=== PATIENT | female | born 1985 | race Caucasian/White ===

== ENCOUNTER 2016-10-07 08:23 | Emergency (ER) | payer OTHER ==
[~2016-10-07] VITALS: Ht 157.5 cm; Wt 57.1 kg
[~2016-10-07 08:23] MED LIST: ESG PO; IBUPROFEN400 MG; LAC PO; LEVAQUIN750 MG PO; NORCO1 TA2
[2016-10-07 11:55] VITALS: BP 120/71
== END 2016-10-07 11:55 | disposition home or self-care (01) ==
LOC: ED 08:23
DX: J20.9 Acute bronchitis, unspecified (principal)
CPT/HCPCS: J7613; J7644

== ENCOUNTER 2016-10-28 08:23 | Emergency (ER) | payer OTHER ==
[2016-10-28 10:08] VITALS: BP 108/61
== END 2016-10-28 10:08 | disposition home or self-care (01) ==
LOC: ED 08:23
DX: J40 Bronchitis, not specified as acute or chronic (principal); M54.9 Dorsalgia, unspecified; Z87.442 Personal history of urinary calculi

== ENCOUNTER 2017-01-12 11:47 | Emergency (ER) | payer OTHER ==
[~2017-01-12] VITALS: Ht 154.9 cm; Wt 56.3 kg
[2017-01-12 12:37] LABS: BASOPHIL % 0.4 % (0-2); PLATELET COUNT 264 x10^3mcL (130-400); RED CELL DISTRIBUTION WIDTH 14.1 % (11.5-14.5)
[2017-01-12 13:02] LABS: CALCIUM 9.1 mg/dL (8.5-10.1); CHLORIDE SERUM 104 mmol/L (98-107); CREATININE SERUM 0.8 mg/dL (0.6-1.0); GFR1 > 60 mL/min; GLUCOSE SERUM 91 mg/dL (74-106); SODIUM SERUM 138 mmol/L (136-145)
[2017-01-12 13:03] LABS: AMPHETAMINE QUAL UR NONE DETECTED (NEG <=1000)
[2017-01-12 13:05] LABS: ALBUMIN 3.9 g/dL (3.4-5.0); ALKALINE PHOSPHATASE 68 U/L (46-116); ALT/SGPT 21 U/L (14-59); AMYLASE 54 U/L (25-115); AST/SGOT 12 U/L (15-37); BILIRUBIN TOTAL 0.7 mg/dL (0.20-1.00); LIPASE 178 IU/L (73-393); TOTAL PROTEIN, SERUM 7.8 g/dL (6.4-8.2)
[2017-01-12 13:42] VITALS: BP 95/64
== END 2017-01-12 13:42 | disposition home or self-care (01) ==
LOC: ED 11:47
PROVIDERS: Emergency Medicine
DX: E86.0 Dehydration (principal); R19.7 Diarrhea, unspecified
CPT/HCPCS: 83880; 87046; 87046-59; J2405; J7030

== ENCOUNTER 2017-02-11 00:56 | Emergency (ER) | payer OTHER ==
[2017-02-11 01:08] VITALS: BP 121/87
== END 2017-02-11 02:49 | disposition home or self-care (01) ==
LOC: ED 00:56
DX: N39.0 Urinary tract infection, site not specified (principal); Z87.442 Personal history of urinary calculi

== ENCOUNTER 2018-12-13 20:46 | Emergency (ER) | payer OTHER ==
[~2018-12-13] VITALS: Ht 157.5 cm; Wt 65.8 kg
[2018-12-13 21:06] VITALS: Ht 157.5 cm; Wt 65.8 kg
[2018-12-13 23:30] LABS: BASOPHIL % 0.4 % (0-2); PLATELET COUNT 295 x10^3mcL (130-400); RED CELL DISTRIBUTION WIDTH 13.9 % (11.5-14.5)
[2018-12-13 23:40] LABS: CALCIUM 8.8 mg/dL (8.5-10.1); CARBON DIOXIDE 26.4 mmol/L (21-32); CHLORIDE SERUM 103 mmol/L (98-107); CREATININE SERUM 0.8 mg/dL (0.6-1.0); GFR1 > 60 mL/min; GLUCOSE SERUM 97 mg/dL (74-106); SODIUM SERUM 138 mmol/L (136-145)
[2018-12-13 23:44] LABS: ALBUMIN 3.5 g/dL (3.4-5.0); ALKALINE PHOSPHATASE 81 U/L (46-116); ALT/SGPT 30 U/L (14-59); AST/SGOT 10 U/L (15-37); BILIRUBIN TOTAL 0.3 mg/dL (0.20-1.00); TOTAL PROTEIN, SERUM 7.4 g/dL (6.4-8.2)
[2018-12-14 01:06] VITALS: BP 101/71
== END 2018-12-14 01:06 | disposition home or self-care (01) ==
LOC: ED 20:46
PROVIDERS: Emergency Medicine
DX: R42 Dizziness and giddiness (principal); R51 Headache; Z87.442 Personal history of urinary calculi
CPT/HCPCS: J2765

== ENCOUNTER 2020-06-18 21:26 | Emergency (ER) | payer OTHER ==
[~2020-06-18] VITALS: Ht 154.9 cm; Wt 66.8 kg
[2020-06-18 21:59] VITALS: Ht 154.9 cm; Wt 66.8 kg
[2020-06-19 00:08] LABS: BASOPHIL % 0.5 % (0-2); PLATELET COUNT 255 x10^3mcL (130-400)
[2020-06-19 00:17] LABS: CALCIUM 8.6 mg/dL (8.5-10.1); CARBON DIOXIDE 26.7 mmol/L (21-32); CHLORIDE SERUM 102 mmol/L (98-107); CREATININE SERUM 0.8 mg/dL (0.6-1.0); GFR1 > 60 mL/min; GLUCOSE SERUM 104 mg/dL (74-106); SODIUM SERUM 135 mmol/L (136-145)
[2020-06-19 00:21] LABS: ALBUMIN 3.5 g/dL (3.4-5.0); ALKALINE PHOSPHATASE 68 U/L (46-116); ALT/SGPT 23 U/L (14-59); AST/SGOT 18 U/L (15-37); BILIRUBIN TOTAL 0.2 mg/dL (0.20-1.00); LIPASE 129 IU/L (73-393); TOTAL PROTEIN, SERUM 7.4 g/dL (6.4-8.2)
[2020-06-19 00:32] LABS: RED CELL DISTRIBUTION WIDTH 15.1 % (11.5-14.5)
[2020-06-19 02:53] VITALS: BP 107/72
== END 2020-06-19 02:45 | disposition home or self-care (01) ==
LOC: ED 21:26
PROVIDERS: Emergency Medicine
DX: U07.1 COVID-19 (principal); N23 Unspecified renal colic; Z87.442 Personal history of urinary calculi
CPT/HCPCS: J2270; J2405; J2765; U0003